=== PATIENT | female | born 1995 | race Two or more races ===

== ENCOUNTER 2023-02-21 00:19 | Emergency (ER) | payer OTHER ==
[~2023-02-21] VITALS: Ht 167.6 cm; Wt 118.4 kg
[2023-02-21] MEDS ORDERED: INTESTINEX680 M1 PO (05:26)
[2023-02-21] MEDS ORDERED: ONDANSETRON ODT4 MG PO (05:26)
== END 2023-02-21 06:03 ==
LOC: EMR PED 00:19 → ER 00:19 → EMR PED 01:16
DX: R11.10 Vomiting, unspecified (principal); R19.7 Diarrhea, unspecified